=== PATIENT | female | born 1990 | race Caucasian/White ===

== ENCOUNTER 2016-10-03 10:53 | Outpatient (CLI) | payer OTHER ==
[2016-10-03 12:57] LABS: BASOPHILS # (AUTO) 0.1 10^3/uL (0.0-0.1); BASOPHILS % (AUTO) 1.2 %; EOSINOPHILS # (AUTO) 0.1 10^3/uL (0.0-0.7); EOSINOPHILS % (AUTO) 1.1 %; HCT - HEMATOCRIT 38.6 % (37.0-47.0); HGB - HEMOGLOBIN 13.2 g/dL (12.0-16.0); LYMPHOCYTES # (AUTO) 2.3 10^3/uL (1.5-3.5); LYMPHOCYTES % (AUTO) 29.7 %; MEAN CORPUSCULAR HEMOGLOBIN 29.8 pg (27.0-31.0); MEAN CORPUSCULAR HGB CONC 34.1 g/dL (32.0-36.0); MEAN CORPUSCULAR VOLUME 87.4 fL (81.0-99.0); MEAN PLATELET VOLUME 9.5 fL (7.9-10.8); MONOCYTES # (AUTO) 0.4 10^3/uL (0.0-1.0); MONOCYTES % (AUTO) 5.6 %; NEUTROPHILS # (AUTO) 4.8 10^3/uL (1.5-6.6); NEUTROPHILS % (AUTO) 62.4 %; RED BLOOD COUNT 4.42 10^6/uL (4.20-5.40); RED CELL DISTRIBUTION WIDTH 13.1 % (12.0-15.0); UNCORRECTED WHITE BLOOD COUNT 7.7 x10^3/uL; WHITE BLOOD COUNT 7.7 x10^3/uL (4.8-10.8)
== END 2016-10-03 10:54 | disposition home or self-care (01) ==
LOC: LAB.N 10:53
PROVIDERS: ATTEND Nurse Practitioner Gerontology
DX: N93.9 Abnormal uterine and vaginal bleeding, unspecified (principal)
CPT/HCPCS: 36415; 85025

== ENCOUNTER 2016-11-07 14:17 | Outpatient (CLI) | payer OTHER | END 2016-11-07 14:18 | disposition home or self-care (01) | LOC: LAB.R 14:17 | PROVIDERS: ATTEND Obstetrics & Gynecology | DX: N92.1 Excessive and frequent menstruation with irregular cycle (principal) | CPT/HCPCS: 87491; 87591 ==

== ENCOUNTER 2016-11-13 11:29 | Outpatient (CLI) | payer OTHER ==
--- NOTE | 2016-11-13 13:49 | Ultrasound Report ---
PELVIC ULTRASOUND: 11/13/2016 CLINICAL INDICATION: Excessive menstruation. TECHNIQUE: Transabdominal pelvic ultrasound performed for global evaluation. Transvaginal pelvic ul trasound performed for detailed evaluation. Real-time scanning performed and static images obtained. FINDINGS: The uterus is anteverted, measuring 6.6 x 3.9 x 3.4 cm. The endometrial echo complex jessica ures 2 mm. No focal myometrial lesion is seen. The ovaries are normal, with the right measuring 2.7 x 2.4 x 1.2 cm, and the left measuring 2.7 x 2.0 x 1.4 cm. No free fluid is present. IMPRESSION: ATROPHIC MYOMETRIUM. OTHERWISE, NORMAL PELVIC ULTRASOUND. JOB #: [id number] EXT JOB #:[id number]
== END 2016-11-13 11:30 | disposition home or self-care (01) ==
LOC: DI 11:29
PROVIDERS: ATTEND Obstetrics & Gynecology
DX: N85.8 Other specified noninflammatory disorders of uterus (principal)
CPT/HCPCS: 76830; 76856